=== PATIENT | male | born 1995 | race Caucasian/White ===

== ENCOUNTER 2023-07-24 11:33 | Emergency (ER) | payer OTHER ==
[2023-07-24 12:03] VITALS: BP 129/70; PULSE 86; RESP 18; TEMP 98.2; BMI 28.1
[2023-07-24] MEDS ORDERED: DIPHTH,PERTUSS(ACELL),TET 0.5 ML DISP.SYRIN IM ONE ×2 (12:08→12:47)
[2023-07-24] MEDS ORDERED: ACETAMINOPHEN 500 MG TABLET (FP) PO ONE (12:09)
[2023-07-24] MEDS ORDERED: ACETAMINOPHEN 500 MG TABLET (FP) ONE (12:47)
== END 2023-07-24 14:38 | disposition home or self-care (01) ==
LOC: JER 11:33
PROC: 3E0234Z Introduction of Serum, Toxoid and Vaccine into Muscle, Percutaneous Approach (ICD-10-PCS; principal; 2023-07-24)
DX: M25.511 Pain in right shoulder (principal); M25.562 Pain in left knee; V03.131A Pedestrian on standing electric scooter injured in collision with car, pick-up or van in traffic accident, initial encounter; Y93.55 Activity, bike riding
CPT/HCPCS: 71101-TC-RT-FY; 73030-TC-RT-FY; 73070-TC-RT-FY; 73110-TC-RT-FY; 73564-TC-LT-FY; 90715; 99284-25